=== PATIENT | female | born 1970 | race Two or more races ===

== ENCOUNTER 2019-07-07 10:26 | Day surgery (SDC) | payer BC ==
[~2019-07-07] VITALS: Ht 152.4 cm; Wt 55.8 kg
[2019-07-07] MEDS ORDERED: LACTATED RINGERS 1,000 ML IV SCH (11:15)
[2019-07-07 11:55] LABS: UCG SCREEN NEGATIVE
[2019-07-07] MEDS ORDERED: MIDAZOLAM HCL 2 MG/2 ML VIAL ONE (12:16)
[2019-07-07] MEDS ORDERED: FENTANYL CITRATE/PF 50MCG/ML 2ML VIAL ONE (12:16)
[2019-07-07] MEDS ORDERED: PROPOFOL 200MG/20ML VIAL IV ONE (12:16)
[2019-07-07] MEDS ORDERED: LIDOCAINE HCL/PF 1% 10 MG/ML 5ML VIAL ONE (12:17)
[2019-07-07] MEDS ORDERED: ONDANSETRON HCL 4MG/2ML INJ IV PRN (12:45)
[2019-07-07] MEDS ORDERED: HYDROMORPHONE HCL/PF 2MG/ML CPJ IV PRN (12:45)
[2019-07-07] MEDS ORDERED: FENTANYL CITRATE/PF 50MCG/ML 2ML VIAL IV PRN (12:45)
[2019-07-07] MEDS ORDERED: ONDANSETRON HCL 4MG/2ML INJ ONE (12:55)
[2019-07-07] MEDS ORDERED: KETOROLAC 30MG/ML VIAL ONE (12:55)
[2019-07-07] MEDS ORDERED: METOCLOPRAMIDE HCL 10MG/2ML VIAL ONE (12:59)
[2019-07-07] MEDS ORDERED: GLYCOPYRROLATE 0.2 MG/ML 2ML VIAL ONE (13:32)
[2019-07-07] MEDS ORDERED: CEFAZOLIN SODIUM 1000MG/VIAL ONE (13:32)
== END 2019-07-07 16:23 | disposition home or self-care (01) ==
LOC: OR 10:26
PROVIDERS: ATTEND Specialist
DX: N20.2 Calculus of kidney with calculus of ureter (principal); I10 Essential (primary) hypertension; K21.9 Gastro-esophageal reflux disease without esophagitis; Z98.890 Other specified postprocedural states; Z79.899 Other long term (current) drug therapy; Z82.49 Family history of ischemic heart disease and other diseases of the circulatory system
CPT/HCPCS: 50590; 52332; 81025; C1769; C2617; J0690; J1885; J2250; J2405; J2704; J2765; J3010; J3490